=== PATIENT | female | born 1960 | race American Indian/Alaskan Native ===

== ENCOUNTER 2017-03-04 20:24 | Emergency (ER) | payer BC ==
[2017-03-04 20:47] VITALS: BP 107/71; PULSE 76; RESP 18; TEMP 97.8; O2SAT 96
--- NOTE | 2017-03-04 21:30 | ED PDOC ---
Lower Extremity Pain/Injury Time Seen by Provider: 03/04/17 21:20 Chief Complaint (Nursing): Lower Extremity Problem/Injury Chief Complaint (Provider): Left Leg Pain History Per: Patient History/Exam Limitations: no limitations Onset/Duration Of Symptoms: Hrs (x4) Current Symptoms Are (Timing): Still Present Additional Complaint(s): Anamika Wilkinson is a 56 year old female with a history of Graves' disease that presents to the ED with a chief complaint of tightness in her left richardson that worsens when walking that began around 5 PM today when the patient was leaving work today. 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 She denies any trauma or fall. Past Medical History Reviewed: Historical Data, Nursing Documentation, Vital Signs Vital Signs: Last Vital Signs Temp 97.8 F 03/04/17 20:45 Pulse 76 03/04/17 20:45 Resp 18 03/04/17 20:45 BP 107/71 03/04/17 20:45 Pulse Ox 96 03/04/17 20:45 - Medical History PMH: Graves' Disease - Family History Family History: States: Unknown Family Hx - Home Medications Home Medications: Ambulatory Orders Medication Instructions Recorded Sulfamethoxazole/Trimethopri 1 tab PO BID #14 tab 05/13/15 [Bactrim Ds 800 mg-160 mg] Ibuprofen [Motrin] 600 mg PO Q8 PRN #21 tab 03/04/17 - Allergies Allergies/Adverse Reactions: Allergies Allergy/AdvReac Type Severity Reaction Status Date / Time No Known Allergies Allergy Verified 05/13/15 20:11 Review of Systems ROS Statement: Except As Marked, All Systems Reviewed And Found Negative Musculoskeletal: Positive for: Leg Pain (left richardson pain) Physical Exam - Reviewed Nursing Documentation Reviewed: Yes Vital Signs Reviewed: Yes - Physical Exam Appears: Positive for: Non-toxic, No Acute Distress Head Exam: Positive for: ATRAUMATIC, NORMOCEPHALIC Skin: Positive for: Normal Color, Warm Pulses-Dorsalis Pedis (L): 2+ Pulses-Dorsalis Pedis (R): 2+ Pulses-Post. Tibialis (L): 2+ Pulses-Post. Tibialis (R): 2+ Extremity: Positive for: Normal ROM. Negative for: Swelling Neurologic/Psych: Positive for: Alert, Oriented. Negative for: Motor/Sensory Deficits - ECG O2 Sat by Pulse Oximetry: 96 (RA) Pulse Ox Interpretation: Normal - Progress ED Course And Treament: duplex neg motrin 600 mg x dose Medical Decision Making Medical Decision Making: Impression: Left Lower Leg Pain Plan: * Ibuprofen 600 mg PO * US Duplex Lower Extremities * Reevaluation Scribe Attestation: Documented by Shonda Mcmillan, acting as a scribe for Carmen Moore PA-C. Provider Scribe Attestation: All medical record entries made by the Scribe were at my direction and personally dictated by me. I have reviewed the chart and agree that the record accurately reflects my personal performance of the history, physical exam, medical decision making, and the department course for this patient. I have also personally directed, reviewed, and agree with the discharge instructions and disposition. Disposition - Clinical Impression Clinical Impression: Richardson splint - Patient ED Disposition Is Patient to be Admitted: No - Disposition Disposition: Routine/Home Disposition Time: 23:08 Condition: FAIR Prescriptions: Ibuprofen [Motrin] 600 mg PO Q8 PRN #21 tab PRN Reason: Pain, Moderate (4-7) Instructions: Richardson Splints (ED) Forms: [employer] (Zambian)
--- NOTE | 2017-03-04 23:30 | US ---
EXAM: US Duplex Left Lower Extremity Veins CLINICAL HISTORY: 56 years old, female; Pain; Leg, lower; Left; Additional info: Left leg pain TECHNIQUE: Real-time ultrasound scan of the veins of the left lower extremity with color Doppler flow, spectral waveform analysis and compression. COMPARISON: No relevant prior studies available. FINDINGS: Deep veins: Normal color and spectral Doppler flow. Normal compressibility. No deep vein thrombosis from common femoral to popliteal vein. Superficial veins: No thrombosis. Soft tissues: No popliteal cyst. IMPRESSION: 1. No evidence of DVT within LEFT lower extremity. 2. Incidental/non-acute findings are described above.
== END 2017-03-05 00:37 | disposition home or self-care (01) ==
LOC: H.ER 20:24
DX: M76.812 Anterior tibial syndrome, left leg (principal); E05.00 Thyrotoxicosis with diffuse goiter without thyrotoxic crisis or storm

== ENCOUNTER 2017-08-23 15:50 | Emergency (ER) | payer BC ==
[2017-08-23 16:19] VITALS: BP 111/72; RESP 17; O2SAT 100
--- NOTE | 2017-08-23 16:34 | ED PDOC ---
HPI: General Adult Time Seen by Provider: 08/23/17 16:23 Chief Complaint (Nursing): Flu-like Symptoms History Per: Patient Onset/Duration Of Symptoms: Days (2) Current Symptoms Are (Timing): Still Present Severity: Moderate Pain Scale Rating Of: 3 Additional Complaint(s): Body aches and fevr since yesterday. Denies cough. No urinary sxs. No vomiting or diarrhea. Past Medical History Vital Signs: Last Vital Signs Temp 100.2 F H 08/23/17 16:15 Pulse 108 H 08/23/17 16:15 Resp 17 08/23/17 16:15 BP 111/72 08/23/17 16:15 Pulse Ox 100 08/23/17 16:15 - Medical History PMH: Graves' Disease - Family History Family History: States: Unknown Family Hx - Home Medications Home Medications: Ambulatory Orders Medication Instructions Recorded Sulfamethoxazole/Trimethopri 1 tab PO BID #14 tab 05/13/15 [Bactrim Ds 800 mg-160 mg] Ibuprofen [Motrin] 600 mg PO Q8 PRN #21 tab 03/04/17 Oseltamivir [Tamiflu] 75 mg PO BID #10 cap 08/23/17 - Allergies Allergies/Adverse Reactions: Allergies Allergy/AdvReac Type Severity Reaction Status Date / Time No Known Allergies Allergy Verified 05/13/15 20:11 Review of Systems Constitutional: Positive for: Fever, Malaise Respiratory: Negative for: Cough Gastrointestinal: Negative for: Nausea, Vomiting, Abdominal Pain, Diarrhea Genitourinary Female: Negative for: Dysuria, Frequency Musculoskeletal: Positive for: Back Pain Physical Exam - Physical Exam Appears: Positive for: Non-toxic, No Acute Distress Skin: Positive for: Normal Color, Warm, DRY ENT: Negative for: Pharyngeal Erythema Neck: Positive for: Normal, Painless ROM Cardiovascular/Chest: Positive for: Regular Rate, Rhythm Respiratory: Positive for: CNT, Normal Breath Sounds - ECG O2 Sat by Pulse Oximetry: 100 Disposition - Clinical Impression Clinical Impression: Influenza - Patient ED Disposition Is Patient to be Admitted: No Counseled Patient/Family Regarding: Studies Performed, Diagnosis, Need For Followup, Rx Given - Disposition Referrals: [facility] [Outside] Disposition: Routine/Home Disposition Time: 16:33 Condition: FAIR Prescriptions: Oseltamivir [Tamiflu] 75 mg PO BID #10 cap Instructions: Influenza (ED)
[2017-08-23 17:52] VITALS: PULSE 94; TEMP 99.4
== END 2017-08-23 17:52 | disposition home or self-care (01) ==
LOC: H.ER 15:50
DX: J11.1 Influenza due to unidentified influenza virus with other respiratory manifestations (principal)

== ENCOUNTER 2018-02-25 21:32 | Emergency (ER) | payer BC ==
[2018-02-25 22:09] VITALS: BP 116/74; PULSE 71; RESP 16; TEMP 97.6; O2SAT 97
--- NOTE | 2018-02-25 23:23 | ED PDOC ---
Lower Extremity Pain/Injury Time Seen by Provider: 02/25/18 22:11 Chief Complaint (Nursing): Lower Extremity Problem/Injury Chief Complaint (Provider): right foot swelling and pain x 2 days History Per: Patient History/Exam Limitations: no limitations Onset/Duration Of Symptoms: Days Current Symptoms Are (Timing): Still Present Additional Complaint(s): 57 yo female presents with pain and swelling on the top of her right foot. Pt states 1 month ago something landed on it and the pain resolved until 2 days ago. No new injury. No numbness/tingling. No bruising. No skin lesions. No similar in the past. Past Medical History Reviewed: Historical Data, Nursing Documentation, Vital Signs Vital Signs: Last Vital Signs Temp 97.6 F 02/25/18 22:05 Pulse 71 02/25/18 22:05 Resp 16 02/25/18 22:05 BP 116/74 02/25/18 22:05 Pulse Ox 97 02/25/18 22:05 - Medical History PMH: Graves' Disease - Surgical History Surgical History: No Surg Hx - Family History Family History: States: Unknown Family Hx - Living Arrangements Living Arrangements: With Family - Social History Current smoker - smoking cessation education provided: No - Home Medications Home Medications: Ambulatory Orders Medication Instructions Recorded Sulfamethoxazole/Trimethopri 1 tab PO BID #14 tab 05/13/15 [Bactrim Ds 800 mg-160 mg] Ibuprofen [Motrin] 600 mg PO Q8 PRN #21 tab 03/04/17 Oseltamivir [Tamiflu] 75 mg PO BID #10 cap 08/23/17 traMADol [Ultram] 50 - 100 mg PO Q6H #20 tab 02/25/18 - Allergies Allergies/Adverse Reactions: Allergies Allergy/AdvReac Type Severity Reaction Status Date / Time No Known Allergies Allergy Verified 02/25/18 22:04 Review of Systems ROS Statement: Except As Marked, All Systems Reviewed And Found Negative Constitutional: Negative for: Fever, Chills Musculoskeletal: Positive for: Foot Pain Skin: Negative for: Jaundice, Bruising, Other Physical Exam - Reviewed Nursing Documentation Reviewed: Yes Vital Signs Reviewed: Yes - Physical Exam Appears: Positive for: Well, Non-toxic, No Acute Distress Head Exam: Positive for: ATRAUMATIC, NORMAL INSPECTION, NORMOCEPHALIC Skin: Positive for: Normal Color, Warm, DRY Eye Exam: Positive for: Normal appearance ENT: Positive for: Normal ENT Inspection Neck: Positive for: Normal, Painless ROM Respiratory: Negative for: Accessory Muscle Use, Respiratory Distress Pulses-Dorsalis Pedis (R): 2+ Pulses-Post. Tibialis (R): 2+ Back: Positive for: Normal Inspection Extremity: Positive for: Normal ROM Neurologic/Psych: Positive for: Alert, Oriented - ECG O2 Sat by Pulse Oximetry: 97 Pulse Ox Interpretation: Normal Medical Decision Making Medical Decision Making: No acute fracture or dislocation seen on foot XR. Pt would like pain medication for home and lseeping but does not currently want anything. Discussed ice, elevation, motrin for pain and swelling and tramadol for severe pain. F.u with podiatry. Disposition - Clinical Impression Clinical Impression: Foot pain - Patient ED Disposition Is Patient to be Admitted: No Counseled Patient/Family Regarding: Diagnosis, Need For Followup, Rx Given - Disposition Referrals: Jerry Potter DPM [Staff Provider] - [facility] [Outside] [facility] [Outside] Disposition: Routine/Home Disposition Time: 23:23 Condition: STABLE Prescriptions: traMADol [Ultram] 50 - 100 mg PO Q6H #20 tab Instructions: Metatarsalgia (DC) Forms: [employer] (Romansh)
--- NOTE | 2018-02-26 10:01 | RAD ---
Date of service: 02/25/2018 PROCEDURE: Right Foot Radiographs. HISTORY: pain, swelling dorsal mid foot, no recent trauma COMPARISON: None. FINDINGS: BONES: No acute fracture or destructive bony lesion identified. JOINTS: Normal. SOFT TISSUES: Normal. OTHER FINDINGS: None. IMPRESSION: Unremarkable right foot radiographs.
== END 2018-02-25 23:38 | disposition home or self-care (01) ==
LOC: H.ER 21:32
DX: M79.671 Pain in right foot (principal); E05.00 Thyrotoxicosis with diffuse goiter without thyrotoxic crisis or storm